=== PATIENT | female | born 2000 | race Caucasian/White ===

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

== ENCOUNTER → 2018-01-23 | Outpatient (CLI) | payer OTHER | LOC: M LRY 15:39 | DX: O32.8XX0 Maternal care for other malpresentation of fetus, not applicable or unspecified (principal); Z3A.23 23 weeks gestation of pregnancy | CPT/HCPCS: 76816 ==

== ENCOUNTER → 2018-06-07 | Outpatient (REF) | payer OTHER | LOC: M SFHCLERA 17:38 | PROVIDERS: ATTEND Nurse Practitioner Family | DX: J02.9 Acute pharyngitis, unspecified (principal) ==

== ENCOUNTER → 2018-09-19 | Outpatient (REF) | payer OTHER | LOC: M SFHCLERA 20:19 | PROVIDERS: ATTEND Nurse Practitioner Family | DX: Z87.898 Personal history of other specified conditions (principal) ==

== ENCOUNTER → 2018-12-20 | Outpatient (CLI) | payer OTHER ==
--- NOTE | 2018-12-20 15:42 | REP ---
PELVIC ULTRASOUND: Real-time sonographic evaluation of the pelvis performed utilizing transabdominal and endovaginal technique. The bladder measures 14.4 x 6.9 x 8.2 cm. Uterus measures 8.1 x 3.7 x 5.0 cm. Endometrial thickness is 5 mm. IUD is seen in the endometrial canal. Ovaries appear normal in size and echotexture, right ovary measuring 3.3 x 2.1 x 2.2 cm and left ovary 2.2 x 1.8 x 1.3 cm. There is no adnexal mass or free fluid. There is no torsion of either ovary with duplex Doppler evaluation. IMPRESSION: IUD in endometrial canal. Otherwise negative pelvic ultrasound. Unreviewed
== END ==
LOC: M RAD 13:07
PROVIDERS: ATTEND Obstetrics & Gynecology Obstetrics
DX: Z30.431 Encounter for routine checking of intrauterine contraceptive device (principal)

== ENCOUNTER 2019-10-06 15:01 | Emergency (ER) | payer OTHER ==
[~2019-10-06] VITALS: Ht 152.4 cm; Wt 105.8 kg
[2019-10-06] MEDS ORDERED: IUD (15:10)
[2019-10-06 15:39] LABS: BASO # 0.1 10^3/uL (0.0-0.2); BASO % 0.8 % (0.0-1.0); EOS # 0.6 10^3/uL (0.0-0.5); EOS % 4.8 % (0.0-3.0); HEMATOCRIT 39.2 % (36.0-47.0); HEMOGLOBIN 12.7 g/dl (12.0-15.5); LYMPH % 23.3 % (24.0-44.0); MEAN CORPUSCULAR HEMOGLOBIN 26.5 pg (27.0-33.0); MEAN CORPUSCULAR HGB CONC 32.4 g/dl (32.0-36.5); MEAN CORPUSCULAR VOLUME 81.7 fl (80.0-96.0); MONO # 1.2 10^3/uL (0.0-0.8); MONO % 9.4 % (0.0-5.0); NEUTROPHILS % 61.5 % (36.0-66.0); PLATELET COUNT, AUTOMATED 420 10^3/uL (150-450); WHITE BLOOD COUNT 12.9 10^3/uL (4.0-10.0)
[2019-10-06 16:06] LABS: BLOOD UREA NITROGEN 13 MG/DL (7-18); CALCIUM LEVEL 9.6 MG/DL (8.5-10.1); CARBON DIOXIDE LEVEL 26 MEQ/L (21-32); CHLORIDE LEVEL 105 MEQ/L (98-107); CREATININE FOR GFR 0.78 MG/DL (0.55-1.30); GLOMERULAR FILTRATION RATE > 60.0 (>60); GLUCOSE, FASTING 87 MG/DL (70-100); SODIUM LEVEL 138 MEQ/L (136-145)
[2019-10-06 16:08] LABS: HCG, SERUM QUALITATIVE NEGATIVE (NEGATIVE)
[2019-10-06 16:53] LABS: FERRITIN 16 NG/ML (8-252); FREE THYROXINE INDEX 3.2 % (1.3-4.8); IRON (FE) 46 UG/DL (50-170); PERCENT SATURATION 13.5 % (13.2-45.0); T UPTAKE 33 % (30-39); THYROXINE (T4) 9.8 UG/DL (4.5-12.0); TOTAL IRON BINDING CAPACITY 340 UG/DL (250-450)
[2019-10-06 16:54] LABS: HEMOGLOBIN A1c 5.8 %
[2019-10-06 17:38] VITALS: BP 130/83
--- NOTE | 2019-10-07 04:05 | REP ---
CT BRAIN WITHOUT CONTRAST: REASON FOR EXAM: Headache and dizziness. PRIORS: None. TECHNIQUE: 4.5 mm contiguous transaxial sections were obtained from the skull base to the cerebral convexities with thin cuts through the posterior fossa without the administration of intravenous contrast. FINDINGS: The ventricles and sulci are consistent with the patient's age. There are no extra-axial fluid collections. There is no mass effect. The deep cerebral white matter is consistent with the patient's age. The orbital and petrous structures, cerebellopontine angles, and posterior fossa are unremarkable. The sella turcica, cavernous, and paracavernous structures are essentially unremarkable. The visualized portions of the paranasal sinuses and mastoid air cells are clear. Images of the skull base show no gross abnormality. IMPRESSION: Essentially unremarkable CT examination of the brain. Electronically Signed by Roger Nelson DO 10/07/2019 11:36 A
== END 2019-10-06 17:39 | disposition home or self-care (01) ==
LOC: M ED 15:01
DX: R53.83 Other fatigue (principal); R20.8 Other disturbances of skin sensation; D72.829 Elevated white blood cell count, unspecified

== ENCOUNTER → 2019-11-09 | Outpatient (REF) | payer OTHER ==
[~2019-11-09] MED LIST: IUD
== END ==
LOC: M SFHCLUC 11:22
PROVIDERS: ATTEND Physician Assistant
DX: J02.9 Acute pharyngitis, unspecified (principal)

== ENCOUNTER → 2020-08-10 | Outpatient (CLI) | payer OTHER ==
[2020-08-10 20:17] LABS: BASO # 0.1 10^3/uL (0.0-0.2); BASO % 0.8 % (0.0-1.0); EOS # 0.7 10^3/uL (0.0-0.5); EOS % 6.5 % (0.0-3.0); HEMATOCRIT 39.7 % (36.0-47.0); HEMOGLOBIN 12.8 g/dl (12.0-15.5); LYMPH # 2.1 10^3/uL (1.5-5.0); LYMPH % 20.5 % (24.0-44.0); MEAN CORPUSCULAR HEMOGLOBIN 26.7 pg (27.0-33.0); MEAN CORPUSCULAR HGB CONC 32.2 g/dl (32.0-36.5); MEAN CORPUSCULAR VOLUME 82.7 fl (80.0-96.0); MONO # 1.1 10^3/uL (0.0-0.8); MONO % 10.5 % (2.0-8.0); NEUTROPHILS # 6.4 10^3/uL (1.5-8.5); NEUTROPHILS % 61.4 % (36.0-66.0); PLATELET COUNT, AUTOMATED 482 10^3/uL (150-450); WHITE BLOOD COUNT 10.4 10^3/uL (4.0-10.0)
[2020-08-10 20:46] LABS: ALBUMIN 3.6 GM/DL (3.2-5.2); ALT/SGPT 54 U/L (12-78); BILIRUBIN,TOTAL 0.2 MG/DL (0.2-1.0); BLOOD UREA NITROGEN 13 MG/DL (7-18); CALCIUM LEVEL 8.8 MG/DL (8.5-10.1); CARBON DIOXIDE LEVEL 27 MEQ/L (21-32); CHLORIDE LEVEL 106 MEQ/L (98-107); CREATININE FOR GFR 0.76 MG/DL (0.55-1.30); FREE T4 1.17 NG/DL (0.76-1.46); GLOMERULAR FILTRATION RATE > 60.0 (>60); GLUCOSE, FASTING 90 MG/DL (70-100); POTASSIUM SERUM 4.3 MEQ/L (3.5-5.1); SODIUM LEVEL 139 MEQ/L (136-145); TOTAL PROTEIN 7.4 GM/DL (6.4-8.2)
[2020-08-10 22:33] LABS: HEMOGLOBIN A1c 5.4 %
== END ==
LOC: M WUC 15:05
PROVIDERS: ATTEND Physician Assistant
DX: Z13.29 Encounter for screening for other suspected endocrine disorder (principal)

== ENCOUNTER → 2020-09-17 | Outpatient (CLI) | payer OTHER ==
--- NOTE | 2020-09-21 13:15 | SLEEPHOME ---
DATE: 09/17/2020 ORDERED BY: Austen D[facility] home sleep testing was performed due to concern for the obstructive sleep apnea syndrome in this patient with hypersomnia. For testing, a nocturnal T3 respiratory monitoring device was used. Continuous record was made of pulse, oxygen saturation, air flow, chest and abdominal strain, and body position. There was 11 hours and 59 minutes of data reviewed. There was 9 hours and 11 minutes marked as time in bed. During the interval marked time in bed, there were 81 respiratory events identified of 10 seconds in duration or greater for a respiratory event index of 8.8. The events were primarily obstructive. Baseline pulse rate 93. Pulse rate ranged 40-120. Baseline saturation 95%. Saturations fell to 87%. Testing was performed in both the supine and nonsupine positions. IMPRESSION: Abnormal home sleep testing with repetitive respiratory events and oxygen desaturations to 87% with a respiratory event index of 8.8 is consistent with the obstructive sleep apnea syndrome. RECOMMENDATION: The patient should be encouraged to undergo formal sleep evaluation.
== END ==
LOC: M SLEEP HO 10:28
PROVIDERS: ATTEND Physician Assistant
DX: G47.10 Hypersomnia, unspecified (principal); M25.551 Pain in right hip